=== PATIENT | female | born 1930 | race Caucasian/White ===

== ENCOUNTER 2018-12-06 11:44 | Emergency (ER) | payer MEDICARE, MEDICAID ==
[2018-12-06] MEDS ORDERED: SODIUM CHLORIDE 0.9% (FLUSH) 10 ML SYG IV PRN (12:45)
--- NOTE | 2018-12-06 13:34 | CT ---
EXAM DESCRIPTION: Head CLINICAL HISTORY: right sided facial droop, rle weakness COMPARISON: None available TECHNIQUE: Noncontrast head CT was performed with routine protocol. FINDINGS: Normal pepe-white matter differentiation. Ventricles and sulci are normal for age. No high density hemorrhage, focal edema or shift of the midline. No sulcal effacement. Normal orbital contents. Basilar cisterns appear clear. Intact calvarium with no fracture or lytic lesion. Normal aeration of tympanic cavities and mastoid air cells. No fluid levels in the paranasal sinuses. Skull base appears intact. Symmetrical internal auditory canals. IMPRESSION: No acute intracranial pathologic process. This exam was performed according to our departmental dose-optimization program, which includes automated exposure control, adjustment of the mA and/or kV according to patient size and/or use of iterative reconstruction technique. Total DLP equals 752.48 mGycm. Electronically signed by: Delvin Holcomb MD 12/06/2018 1:30 PM CDT
--- NOTE | 2018-12-06 13:40 | CT ---
EXAM DESCRIPTION: Sinuses CLINICAL HISTORY: right sided facial swelling, pain COMPARISON: None Available. TECHNIQUE: CT of the sinuses is performed with direct axial imaging technique. Multiplanar reformatted images are reviewed post along with source images. FINDINGS: Small mucous retention cyst in the anterior right maxillary sinus measures 7 mm. Small amount of fluid in the inferior right maxillary sinus is seen on the coronal images. Other paranasal sinuses are clear. Normal aeration of tympanic cavities and external auditory canals. Normal aeration of mastoid air cells. Sagittal reformatted images show degenerative changes around the dens. Mandible temporomandibular joint alignment appears normal. The mandible is not entirely included on the exam. Normal aeration of sphenoid sinus with normal sella. Orbital contents are unremarkable for age. IMPRESSION: Small amount fluid in the right maxillary sinus with small mucous retention cyst 7 mm. This exam was performed according to our departmental dose-optimization program, which includes automated exposure control, adjustment of the mA and/or kV according to patient size and/or use of iterative reconstruction technique. Total DLP equals 247.85 mGycm. Electronically signed by: Delvin Holcomb MD 12/06/2018 1:37 PM CDT
--- NOTE | 2018-12-06 13:41 | RAD ---
EXAM DESCRIPTION: Chest,1 View CLINICAL HISTORY: 88 years Female, cough COMPARISON: Previous study September 14, 2016 TECHNIQUE: AP portable chest. FINDINGS: Heart size is normal with normal pulmonary vascularity. No consolidating infiltrate. No pulmonary mass or worrisome nodule. No pneumothorax or pleural effusion. Bones are unremarkable. IMPRESSION: No acute process is identified in the chest. Electronically signed by: Delvin Holcomb MD 12/06/2018 1:38 PM CDT
[2018-12-06] MEDS ORDERED: traMADol 37.5MG/APAP 325MG 1 EA TAB PO ONE (14:17)
--- NOTE | 2018-12-06 14:49 | ED.PDOC ---
History of Present Illness - General Chief Complaint: Neuro Symptoms/Deficits Stated Complaint: swelling in face, thinks stroke Time Seen by Provider: 12/06/18 12:11 Source: patient, family Exam Limitations: no limitations - History of Present Illness Initial Comments: PT PRESENTS WITH COMPLAINT OF CONTINUED SWELLING AND PAIN TO RIGHT SIDE OF FACE DESPITE BEING ON ANTIBIOTICS FOR THE PAST 6 DAYS. PT STATES THAT SHE FEELS LIKE SHE HAD A STROKE A FEW DAYS AGO CONSISTING OF RIGHT SIDE FACIAL DROOP BUT STATES THAT SYMPTOMS HAVE SINCE RESOLVED. PT DENIES FEVER, CHILLS, OR HEADACHE. Timing/Duration: 1 week, other - IMPROVING BUT STILL PRESENT Severity: moderate Improving Factors: nothing Worsening Factors: nothing Associated Symptoms: denies symptoms Allergies/Adverse Reactions: Allergies Codeine Adverse Reaction (Verified 09/13/16 01:23) Home Medications: Ambulatory Orders Lisinopril [Prinivil] 2.5 mg PO DAILY #30 tab 09/14/16 Aspirin [Aspirin Childrens] 81 mg PO DAILY 12/06/18 Chlorhexidine Mouth Rinse [Peridex] 1 dose PO DAILY 12/06/18 Esomeprazole Magnesium 40 mg PO DAILY 12/06/18 levoFLOXacin [Levaquin] 500 mg PO DAILY #10 tab 12/06/18 Review of Systems - Review of Systems Constitutional: Denies: chills, fever EENTM: States: mouth pain, other - RIGHT FACIAL PAIN. Denies: blurred vision, nose congestion Respiratory: States: cough - CHRONIC IN NATURE. Denies: short of breath Cardiology: Denies: chest pain, palpitations Gastrointestinal/Abdominal: Denies: abdominal pain, nausea, vomiting Genitourinary: Denies: dysuria, frequency Musculoskeletal: Denies: joint pain, joint swelling Skin: Denies: change in color, lesions Neurological: Denies: headache Endocrine: States: no symptoms reported Hematologic/Lymphatic: States: no symptoms reported Past Medical History (General) - Patient Medical History Hx Seizures: No Hx Stroke: Yes - about 10yrs ago Hx Asthma: No Hx of COPD: Yes Hx Congestive Heart Failure: Yes Hx Pacemaker: No Hx Hypertension: Yes Hx Diabetes: No Hx Gastroesophageal Reflux: Yes Hx Renal Disease: Yes Hx MRSA: No Surgical History: appendectomy, cholecystectomy, Hysterectomy - Vaccination History Hx Tetanus, Diphtheria Vaccination: No Hx Influenza Vaccination: Yes Hx Pneumococcal Vaccination: Yes - Social History Hx Tobacco Use: No Hx Alcohol Use: No Hx Substance Use: No Hx Substance Use Treatment: No Hx Depression: No Hx Physical Abuse: No Hx Emotional Abuse: No - Female History Patient : No Family Medical History - Family History Mother Family History: Unknown Living Status: Unknown Physical Exam - Physical Exam General Appearance: Alert, No apparent distress, Well Developed, Well Groomed, Well Hydrated Eye Exam: bilateral normal Ears, Nose, Throat: hearing grossly normal, normal pharynx, sinus pain/drainage - RIGHT MAXILLARY, other - TTP OF THE RIGHT MAXILLARY GUM LINE Neck: limited range of motion, lymphadenopathy (R) - ANTERIOR CERVICAL TTP Respiratory: lungs clear, normal breath sounds, no respiratory distress Cardiovascular/Chest: regular rate, rhythm, no murmur Gastrointestinal/Abdominal: non tender, soft Back Exam: normal inspection Neurologic: alert, normal mood/affect, oriented x 3, sensory deficit - MILD TO RIGHT SIDE OF FACE, other - MILD RLE WEAKNESS (DAUGHTER STATES CHRONIC) Skin Exam: normal color, warm/dry Progress - Progress Progress: 12/06/18 14:55 LABS AND DIAGNOSTICS DISCUSSED WITH PATIENT. WILL START PT ON LEVAQUIN FOR SINUSITIS. - Results/Orders Results/Orders: Laboratory Tests 12/06/18 12/06/18 12/06/18 13:29 13:29 13:29 WBC 4.8 RBC 4.90 Hgb 15.5 Hct 45.6 MCV 93.0 MCH 31.7 H MCHC 34.1 RDW 13.0 Plt Count 295 MPV 7.0 L Absolute Neuts (auto) 3.10 Absolute Lymphs (auto) 1.00 Absolute Monos (auto) 0.50 Absolute Eos (auto) 0.10 Absolute Basos (auto) 0.00 Neutrophils % 64.2 Lymphocytes % 21.5 Monocytes % 10.7 H Eosinophils % 2.9 Basophils % 0.7 PT 10.3 INR 1.03 PTT (SP) 25.3 Sodium 137 Potassium 4.5 Chloride 104 Carbon Dioxide 24 Anion Gap 13.5 BUN 20 H Creatinine 0.76 BUN/Creatinine Ratio 26.3 H Random Glucose 85 Serum Osmolality 275.7 Calcium 9.0 Total Bilirubin 0.6 AST 21 ALT 11 Alkaline Phosphatase 90 Creatine Kinase 176 H CK-MB (CK-2) 2.3 CK-MB (CK-2) % 1.31 Troponin I < 0.02 Serum Total Protein 7.0 Albumin 3.6 Globulin 3.4 Albumin/Globulin Ratio 1.1 - EKG/XRAY/CT EKG: Sinus - @79BPM, NL INTERVALS, NL AXIS, GOOD R WAVE PROGRESSION, no ST T wave changes - NO OLD FOR COMPARISON XRAY: chest - NO ACUTE DISEASE PER RAD CT: HEAD/SINUSES CT Ordered: Yes - RIGHT MAXILLARY SINUS DZ, NO ACUTE INTRACRANIAL FINDINGS CT Interpretation Call Back: No Departure - Departure Clinical Impression: Sinusitis Time of Disposition: 14:58 Disposition: Discharge to Home or Self Care Condition: Good Departure Forms: ED Discharge - Pt. Copy, Patient Portal Self Enrollment Instructions: Sinusitis, Adult (DC) Activity: ambulate only with walker Referrals: [facility] [Provider Group] - 1-5 Days Prescriptions: levoFLOXacin [Levaquin] 500 mg PO DAILY #10 tab Home Medications: Ambulatory Orders Lisinopril [Prinivil] 2.5 mg PO DAILY #30 tab 09/14/16 Aspirin [Aspirin Childrens] 81 mg PO DAILY 12/06/18 Chlorhexidine Mouth Rinse [Peridex] 1 dose PO DAILY 12/06/18 Esomeprazole Magnesium 40 mg PO DAILY 12/06/18 levoFLOXacin [Levaquin] 500 mg PO DAILY #10 tab 12/06/18
[2018-12-06 15:16] VITALS: BP 122/78; TEMP 97; O2SAT 94
== END 2018-12-06 15:16 | disposition home or self-care (01) ==
LOC: EDBD 11:44 → ER 11:44
DX: J32.0 Chronic maxillary sinusitis (principal); J44.9 Chronic obstructive pulmonary disease, unspecified; I50.9 Heart failure, unspecified; I13.10 Hypertensive heart and chronic kidney disease without heart failure, with stage 1 through stage 4 chronic kidney disease, or unspecified chronic kidney disease; N18.9 Chronic kidney disease, unspecified; K21.9 Gastro-esophageal reflux disease without esophagitis; Z86.73 Personal history of transient ischemic attack (TIA), and cerebral infarction without residual deficits; Z79.82 Long term (current) use of aspirin; Z79.899 Other long term (current) drug therapy; Z88.5 Allergy status to narcotic agent